=== PATIENT | male | born 1950 | race Caucasian/White ===

== ENCOUNTER 2019-03-16 12:12 | Inpatient (IN) | payer MEDICARE, OTHER ==
[~2019-03-16] VITALS: Ht 170.2 cm; Wt 78.0 kg
--- NOTE | ~2019-03-16 | EKG ---
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
[2019-03-16 12:14] VITALS: BP 116/76
[2019-03-16 12:52] LABS: ABSOLUTE BASOPHILS 0.1 thou/uL (0.0-0.2); ABSOLUTE EOSINOPHILS 0.2 thou/uL (0.0-0.7); ABSOLUTE LYMPHOCYTES 1.6 thou/uL (0.8-5.3); ABSOLUTE MONOCYTES 0.6 thou/uL (0.0-1.2); ABSOLUTE NEUTROPHILS 9.3 thou/uL (1.6-8.1); BASOPHILS 0.9 %; EOSINOPHILS 1.8 %; HEMATOCRIT 41.9 % (42.0-52.0); HEMOGLOBIN 14.1 gm/dL (14.0-18.0); LYMPHOCYTES 13.3 %; MCH 30.9 pg (26.0-34.0); MCHC 33.7 g/dL (28.0-37.0); MCV 91.9 fL (80.0-100.0); MPV 8.7 fl. (7.2-11.1); NUCLEATED RBCS 0 /100WBC; PLATELET COUNT* 201 thou/uL (150-400); RBC 4.56 mil/uL (4.50-6.00); RDW-CV 12.5 % (10.5-14.5); WBC 11.8 thou/uL (4.0-11.0)
[2019-03-16 13:05] LABS: ANION GAP 8 mmol/L (7-16); BUN 18 mg/dL (7-18); CHLORIDE 106 mmol/L (98-107); CO2 26 mmol/L (21-32); GLUCOSE 124 mg/dL (70-99); POTASSIUM 4.2 mmol/L (3.5-5.1); SODIUM 140 mmol/L (136-145)
[2019-03-16 13:07] LABS: APTT 23.4 Seconds (25.0-31.3); INR 1.1; PROTIME 11.1 Seconds (9.20-11.50)
[2019-03-16 13:20] LABS: ALBUMIN 3.4 g/dL (3.4-5.0); ALKALINE PHOSPHATASE 80 U/L (46-116); CK-MB MASS 0.8 ng/mL (<0.5-3.6); LIPASE 1223 U/L (73-393); MAGNESIUM 1.7 mg/dL (1.8-2.4); NT-PRO BRAIN NAT PEPTIDE 56 pg/mL (<300); SGOT 17 U/L (15-37); SGPT 28 U/L (30-65); TOTAL BILIRUBIN 0.4 mg/dL (<0.1-1.0); TOTAL PROTEIN 6.5 g/dL (6.4-8.2); TROPONIN-I LEVEL <0.06 ng/mL (<0.06)
[2019-03-16 17:11] VITALS: BP 133/88
[2019-03-16 17:30] VITALS: BP 122/74
[2019-03-16] MEDS ORDERED: ACETAMINOPHEN325 M1 PO (19:00)
[2019-03-16] MEDS ORDERED: [UNRECOGNIZED DRUG - OTHER] (19:00)
[2019-03-16 20:00] VITALS: BP 128/72
[2019-03-16 23:49] VITALS: BP 136/68
[2019-03-17 04:23] VITALS: BP 117/67
[2019-03-17 05:05] LABS: ANION GAP 5 mmol/L (7-16); BUN 15 mg/dL (7-18); CALCIUM 8.5 mg/dL (8.5-10.1); CHLORIDE 106 mmol/L (98-107); CHOLESTEROL 189 mg/dL (<200); CO2 29 mmol/L (21-32); CREATININE 1.2 mg/dL (0.6-1.3); GLUCOSE 101 mg/dL (70-99); HDL CHOLESTEROL 32 mg/dL (>40); LDL CHOLESTEROL 144 mg/dL (<100); POTASSIUM 4.8 mmol/L (3.5-5.1); SODIUM 140 mmol/L (136-145); TC:HDL 5.9 Ratio (Not establshd); TRIGLYCERIDE 67 mg/dL (<150); VLDL 13 mg/dL (<40)
[2019-03-17 05:14] LABS: SERUM ASSESSMENT Clear
[2019-03-17 08:36] VITALS: BP 116/77
[2019-03-17] MEDS ORDERED: ASPIR 8181 MG PO (08:57)
[2019-03-17] MEDS ORDERED: FISH OIL 1,001000 M2 PO (08:57)
--- NOTE | 2019-03-17 10:34 | EKG ---
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
[2019-03-17 12:14] VITALS: BP 139/79
[2019-03-17 12:16] VITALS: BP 139/79
--- NOTE | 2019-03-17 14:41 | 2DMMODE ---
[place] [address] 2 D/M-MODE ECHOCARDIOGRAM Name: BARRY LEIGH Room: [address] IN [facility]#: [id number] Admission: 03/16/19 Attend Phys: Luciano Umana MD Discharge: Date of : 52 Date of Service: 03/17/19 1441 Report #: [id number] THIS REPORT FOR: //name// APPROVED REPORT Study performed: 03/17/2019 09:48:01 EXAM: Comprehensive 2D, Doppler, and color-flow Echocardiogram Patient Location: In-Patient Room #: [facility] Status: routine BSA: 1.90 HR: 63 bpm BP: 116/77 mmHg Rhythm: NSR Other Information Study Quality: Good Indications Chest Pain 2D Dimensions IVSd: 12.73 (7-11mm) LVOT Diam: 19.84 (18-24mm) LVDd: 44.20 mm PWd: 10.19 (7-11mm) Ascending Ao: 33.72 (22-36mm) LVDs: 26.89 (25-40mm) Aortic Root: 34.36 mm Volumes Left Atrial Volume (Systole) LA ESV Index: 32.40 mL/m2 Aortic Valve AoV Peak Babar.: 1.46 m/s AO Peak Gr.: 8.50 mmHg LVOT Max P.04 mmHg AO Mean Gr.: 4.50 mmHg LVOT Mean P.24 mmHg LVOT Max V: 1.42 m/s AO V2 VTI: 26.75 cm LVOT Mean V: 0.80 m/s NOA (VTI): 3.25 cm2 LVOT V1 VTI: 28.15 cm Mitral Valve E/A Ratio: 1.46 MV Decel. Time: 227.91 ms MV E Max Babar.: 0.97 m/[place] [address] 2 D/M-MODE ECHOCARDIOGRAM Name: BARRY LEIGH Room: [address] IN [facility]#: [id number] Admission: 03/16/19 Attend Phys: Luciano Umana MD Discharge: Date of : 52 Date of Service: 03/17/19 1441 Report #: [id number] MV PHT: 66.09 ms MVA (PHT): 3.33 cm2 TDI E/Lateral E': 10.78 E/Medial E': 9.70 Medial E' Babar.: 0.10 m/s Lateral E' Babar.: 0.09 m/s Pulmonary Valve PV Peak Babar.: 0.96 m/s PV Peak Gr.: 3.70 mmHg Tricuspid Valve RAP Estimate: 5.00 mmHg TR Peak Gr.: 22.95 mmHg RVSP: 28.00 mmHg PA Pressure: 28.00 mmHg Left Ventricle The left ventricle is normal size. There is normal LV segmental wall motion. There is normal left ventricular wall thickness. Left ventricular systolic function is normal. LVEF is 60-65%. The left ventricular diastolic function is normal. Right Ventricle The right ventricle is normal size. The right ventricular systolic function is normal. Atria The left atrium size is normal. The right atrium size is normal. Aortic Valve The aortic valve is normal in structure. Trace aortic regurgitation. There is no aortic valvular stenosis. Mitral Valve The mitral valve is normal in structure. Trace mitral regurgitation. No evidence of mitral valve stenosis. Tricuspid Valve The tricuspid valve is normal in structure. Trace tricuspid regurgitation. No pulmonary hypertension. Pulmonic Valve The pulmonary valve is normal in structure. There is no pulmonic [place]vular [place] [address] 2 D/M-MODE ECHOCARDIOGRAM Name: ROMMEL LEIGHKaren Olivas Room: [address]#: [id number] Admission: 03/16/19 Attend Phys: Luciano Umana MD Discharge: Date of : 52 Date of Service: 03/17/19 1441 Report #: [id number] Great Vessels The aortic root is normal in size. IVC is normal in size and collapses >50% with inspiration. Pericardium There is no pericardial effusion. <Conclusion> The left ventricle is normal size. There is normal left ventricular wall thickness. Left ventricular systolic function is normal. LVEF is 60-65%. The left ventricular diastolic function is normal. There is normal LV segmental wall motion. Trace mitral regurgitation. Trace tricuspid regurgitation. No pulmonary hypertension. IVC is normal in size and collapses >50% with inspiration. <ELECTRONICALLY SIGNED> By: Torey Ferrer MD, FACC 03/17/19 1441 144 144 Torey Ferrer MD, FACC /INF
--- NOTE | 2019-03-17 14:52 | CARDNUC ---
[place] [address] CARDIAC NUCLEAR IMAGING REPORT Name: BARRY LEIGH Room: [address] IN [facility]#: [id number] Admission: 03/16/19 Attend Phys: Luciano Umana MD Discharge: Date of : 52 Date of Service: 03/17/19 1451 Report #: [id number] THIS REPORT FOR: //name// APPROVED REPORT Study performed: 03/17/2019 11:19:13 Exam: Nuclear Stress Test Indication: CP, Dyspnea. Patient Location: In-Patient Room #: 223 Stress Tech: Kailey Oglesby Stress Nurse: Rena Venegas Tech:ISMAEL [place] Ht: 5 ft 7 in Wt: 172 lbs BSA: 1.90 m2 BMI: 26.93 Medical History Medical History: Angina, No history of CAD, Smoking, SOB, RA. Medications: Atorvastatin, ASA 325 Mg., NTG. Allergies: Penicillins, Rhumicade. Cardiac Risk Factors: Age, SOB, Past Smoker. Previous Cardiac Procedures: None Pretest Chest Pain Characteristics: No chest pain Exercise History: Indeterminate Physical Disabilities: RA Meds Held (24 hrs): NTG. Stress Test Details Stress Test: Pharmacologic stress was paired with low level exercise. Reason for pharmacologic stress test: RA. HR Resting HR: 65 bpm Max Heart Rate (APMHR): 153 bpm Max HR Achieved: 119 bpm Target HR (85% APMHR): 130 bpm % of APMHR: 77 Recovery HR: 75 bpm BP Resting BP: 128/99 mmHg Max BP: 122/73 [place] [address] CARDIAC NUCLEAR IMAGING REPORT Name: BARRY LEIGH Room: [address]#: [id number] Admission: 03/16/19 Attend Phys: Luciano Umana MD Discharge: Date of : 52 Date of Service: 03/17/19 1451 Report #: [id number] ECG Resting ECG: Sinus Rhythm Stress ECG: Sinus Tachycardia ST Change: None Arrhythmia: None Recovery ECG: Sinus Rhythm Recovery ST Change: None Recovery Arrhythmia: None Clinical Reason for Termination: Completed protocol Stress Symptoms: None Exercise duration: 4 min 00 sec Exercise capacity: 2.30 METs The patient tolerated Lexiscan infusion without significant symptoms. Nurse Comments 68 year old male inpatient completed a walking Lexiscan well. Recovery unremarkable with PO caffeine, effective. Patient escorted via wheelchair by staff back to his room for lunch prior to Nuclear Medicine images. Floor nurse notified of patients return and cleared to eat and drink. Patient was stable with no complaints at that time. Stress ECG Conclusion The baseline 12-lead EKG shows sinus rhythm without ST or T-wave abnormality. EKGs obtained during and post Lexiscan infusion showed sinus rhythm and sinus tachycardia with no significant ST or T-wave changes. Baseline. There were no significant stress-induced arrhythmias. NM EXAM: Myocardial Perfusion REST/STRESS Imaging Protocol: Rest Tc-99m/Stress Tc-99m 1 day Resting Data Rest SPECT myocardial perfusion imaging was performed in supine position 30 minutes following the intravenous injection of 11.2 mCi of Tc-99m Sestamibi. Time of rest injection: 929 Date: 03/17/2019 The images were gated to evaluate regional wall motion and calculate left ventricular ejection fraction. Administration Route: IV Administration Site: Left [place] [address] CARDIAC NUCLEAR IMAGING REPORT Name: BARRY LEIGH Room: [address]#: [id number] Admission: 03/16/19 Attend Phys: Luciano Umana MD Discharge: Date of : 52 Date of Service: 03/17/19 1451 Report #: [id number] Pharmacologic stress test was performed by injecting Regadenoson 0.4 mg IV push followed by the intravenous injection of 35.5 mCi of Tc-99m Sestamibi. Time of stress injection: 1129 Date: 03/17/2019 Administration Route: IV Administration Site: Left AC Gated Stress SPECT was performed 40 minutes after stress injection. The images were gated to evaluate regional wall motion and calculate left ventricular ejection fraction. Prone imaging was performed. Study Quality Study: Good Artifact: No artifact Study Data At rest, the left ventricular ejection fraction was 71%.. Post stress, the left ventricular ejection was 66%.. TID = 1.12. Perfusion Normal left ventricular perfusion. Wall Motion Normal left ventricular wall motion. Nuclear Conclusion ECG Findings: negative for ischemia Clinical Findings: negative for ischemia Nuclear Findings: negative for ischemia Exercise Capacity: not assessed Left Ventricular Function: normal Risk Study: low Myocardial perfusion shows no defect to suggest infarct or ischemia. Left ventricular systolic function appears normal on gated studies. This is a low risk study. <Conclusion> The baseline 12-lead EKG shows sinus rhythm without ST or T-wave abnormality. EKGs obtained during and post Lexiscan infusion showed sinus rhythm and sinus tachycardia with no significant [place] [address] CARDIAC NUCLEAR IMAGING REPORT Name: BARRY LEIGH Deisy Room: [address]#: [id number] Admission: 03/16/19 Attend Phys: Luciano Umana MD Discharge: Date of : 52 Date of Service: 03/17/19 1451 Report #: [id number] changes. Baseline. There were no significant stress-induced arrhythmias. <ELECTRONICALLY SIGNED> By: Torey Ferrer MD, FACC 03/17/19 1451 145 145 Torey Ferrer MD, FAC /INF
[2019-03-17 15:54] VITALS: BP 139/79
[2019-03-17 16:03] VITALS: BP 139/79
== END 2019-03-17 16:40 | disposition home or self-care (01) | DRG 918 ==
LOC: M.ERS 12:12 → M.2W 13:28 → M.TBA-ER 13:28 → M.2W 17:20
PROVIDERS: Family Medicine; Internal Medicine; ADMIT Family Medicine
DX: T41.3X1A Poisoning by local anesthetics, accidental (unintentional), initial encounter (principal); J98.11 Atelectasis; I31.3 Pericardial effusion (noninflammatory); J68.0 Bronchitis and pneumonitis due to chemicals, gases, fumes and vapors; M19.90 Unspecified osteoarthritis, unspecified site; M06.9 Rheumatoid arthritis, unspecified; E83.51 Hypocalcemia; E83.42 Hypomagnesemia; E78.5 Hyperlipidemia, unspecified; I25.10 Atherosclerotic heart disease of native coronary artery without angina pectoris; Z87.891 Personal history of nicotine dependence; Y92.89 Other specified places as the place of occurrence of the external cause; Z88.0 Allergy status to penicillin; Z88.8 Allergy status to other drugs, medicaments and biological substances